=== PATIENT | female | born 1970 | race Caucasian/White ===

== ENCOUNTER 2020-10-18 18:09 | Inpatient (IN) | payer OTHER ==
[2020-10-18 19:51] LABS: BASOPHIL 0.1 % (0-2); EOSINOPHIL 0 % (0-5); HCT 53.3 % (37.0-47.0); HGB 17.7 g/dl (12.5-16.0); LYMPHOCYTE 15.9 % (15-48); MCH 30.3 pg (25.0-31.0); MCHC 33.2 g/dL (32.0-36.0); MCV 91.1 fL (78.0-100.0); MONOCYTE 2.1 % (0-12); NEUTROPHIL 81.5 % (41-80); NRBC 0; PLT 346 K/uL (150-400); RBC 5.85 M/uL (4.20-5.40); RDW 12.2 % (11.5-14.0); WBC 13.4 K/uL (4.0-10.5)
[2020-10-18 20:14] LABS: ALBUMIN 4.2 g/dL (3.4-5.0); BILIRUBIN - TOTAL 0.8 mg/dL (0.2-1.0); BUN/CREAT RATIO (CALC) 30.6 RATIO; C-REACTIVE PROTEIN 3.3 mg/dL (<=0.90); CREATININE 0.62 mg/dL (0.51-0.95); GLOBULIN (CALCULATION) 4.2 g/dL; MAGNESIUM 2.2 mg/dL (1.8-2.4); POTASSIUM 4.7 mmol/L (3.5-5.1); TOTAL PROTEIN 8.4 g/dL (6.4-8.2)
[2020-10-18 20:48] LABS: BILIRUBIN 1+ mg/dL (NEGATIVE); BLOOD TRACE-INTACT Ery/uL (NEGATIVE); CLARITY CLEAR (CLEAR); COLOR YELLOW (YELLOW); GLUCOSE (U) 2+ mg/dL (NORMAL); LEUKOCYTES NEGATIVE Leu/uL (NEGATIVE); NITRITE NEGATIVE (NEGATIVE); PROTEIN 1+ mg/dL (NEGATIVE); SPECIFIC GRAVITY >=1.030 (1.001-1.030); UROBILINOGEN 0.2 mg/dL (0.2-1.0); pH 5.5 (5.0-9.0)
[2020-10-18 20:55] LABS: AMORPHOUS URATES CRYSTALS TRACE; BACTERIA TRACE; MUCOUS TRACE
[2020-10-18] MEDS ORDERED: COLESTID 1GM TAB1 GM PO (23:03)
[2020-10-18] MEDS ORDERED: TRULICITY1.5 MG/0.5 SC (23:03)
[2020-10-18] MEDS ORDERED: ALL DAY ALL1 MG/1 ML PO (23:04)
[2020-10-18] MEDS ORDERED: MOBIC7.5 MG PO (23:05)
[2020-10-18] MEDS ORDERED: OMEPRAZOLE40 MG PO (23:05)
[2020-10-18] MEDS ORDERED: SYNJARDY XR 101 EACH PO (23:06)
[2020-10-18 23:53] LABS: CREATININE 0.53 mg/dL (0.51-0.95); POTASSIUM 4.9 mmol/L (3.5-5.1)
[2020-10-19 07:30] LABS: BASOPHIL 0.2 % (0-2); EOSINOPHIL 0.2 % (0-5); HCT 44.3 % (37.0-47.0); HGB 14.6 g/dl (12.5-16.0); LYMPHOCYTE 27.3 % (15-48); MCH 30.2 pg (25.0-31.0); MCV 91.5 fL (78.0-100.0); MONOCYTE 7.2 % (0-12); MPV 9.6 fL (6.0-9.5); NEUTROPHIL 64.8 % (41-80); NRBC 0; PLT 269 K/uL (150-400); RBC 4.84 M/uL (4.20-5.40); RDW 12.6 % (11.5-14.0); WBC 10.4 K/uL (4.0-10.5)
[2020-10-19 07:50] LABS: ALBUMIN 3.3 g/dL (3.4-5.0); BILIRUBIN - TOTAL 0.5 mg/dL (0.2-1.0); CREATININE 0.5 mg/dL (0.51-0.95); GLOBULIN (CALCULATION) 3.2 g/dL; POTASSIUM 3.9 mmol/L (3.5-5.1); TOTAL PROTEIN 6.5 g/dL (6.4-8.2)
[2020-10-19 13:17] LABS: CREATININE 0.5 mg/dL (0.51-0.95); POTASSIUM 3.7 mmol/L (3.5-5.1)
[2020-10-19 17:42] LABS: BUN/CREAT RATIO (CALC) 12.7 RATIO; CREATININE 0.55 mg/dL (0.51-0.95); POTASSIUM 3.4 mmol/L (3.5-5.1)
[2020-10-20 05:14] LABS: CREATININE 0.46 mg/dL (0.51-0.95); POTASSIUM 3.6 mmol/L (3.5-5.1)
[2020-10-20] MEDS ORDERED: METFORMIN HCL500 MG PO (10:09)
[2020-10-20] MEDS ORDERED: SUDAFED30 MG PO (10:09)
[2020-10-20] MEDS ORDERED: MUCINEX 600MG600 MG PO (10:09)
[2020-10-20] MEDS ORDERED: AMOX TR-K CLV1 EAC4 PO (10:09)
[2020-10-20] MEDS ORDERED: NOVOLIN 70100 UNIT/2 SC (10:09)
[2020-10-20] MEDS ORDERED: RELION NOV100 UNIT/2 SC (10:09)
== END 2020-10-20 11:50 | disposition home or self-care (01) | DRG 639 ==
LOC: FER 18:09 → FICU 21:45
PROVIDERS: Emergency Medicine; Hospitalist; Internal Medicine; ADMIT Internal Medicine
DX: E09.10 Drug or chemical induced diabetes mellitus with ketoacidosis without coma (principal); E66.01 Morbid (severe) obesity due to excess calories; T50.995A Adverse effect of other drugs, medicaments and biological substances, initial encounter; J01.90 Acute sinusitis, unspecified; K21.9 Gastro-esophageal reflux disease without esophagitis; Z90.49 Acquired absence of other specified parts of digestive tract; Z98.890 Other specified postprocedural states
CPT/HCPCS: 36415; 36600; 80048; 80053; 81001; 82009; 82728; 82803; 82962; 83036; 83615; 83690; 83735; 84145; 84484; 84681; 85025; 86140; 93005; J1650; J2405; J2550; J7030; U0002

== ENCOUNTER 2021-06-03 05:21 | Emergency (ER) | payer OTHER ==
[~2021-06-03 05:21] MED LIST: ALL DAY ALL1 MG/1 ML PO; AMOX TR-K CLV1 EAC4 PO; COLESTID 1GM TAB1 GM PO; METFORMIN HCL500 MG PO; MOBIC7.5 MG PO; MUCINEX 600MG600 MG PO; NOVOLIN 70100 UNIT/2 SC; OMEPRAZOLE40 MG PO; RELION NOV100 UNIT/2 SC; SUDAFED30 MG PO; SYNJARDY XR 101 EACH PO; TRULICITY1.5 MG/0.5 SC
[2021-06-03 06:18] LABS: BASOPHIL 0.5 % (0-2); EOSINOPHIL 0.1 % (0-5); HCT 48.9 % (37.0-47.0); HGB 16.5 g/dl (12.5-16.0); MCH 29.2 pg (25.0-31.0); MCHC 33.7 g/dL (32.0-36.0); MCV 86.4 fL (78.0-100.0); MONOCYTE 3.4 % (0-12); MPV 10.5 fL (6.0-9.5); NEUTROPHIL 82.5 % (41-80); NRBC 0; PLT 256 K/uL (150-400); RBC 5.66 M/uL (4.20-5.40); RDW 12.9 % (11.5-14.0); WBC 9.5 K/uL (4.0-10.5)
[2021-06-03 06:25] LABS: LYMPHOCYTE 11.4 % (15-48)
[2021-06-03 06:36] LABS: PRO-BNP 72 pg/mL (<125)
[2021-06-03 06:43] LABS: ALBUMIN 2.9 g/dL (3.4-5.0); BILIRUBIN - TOTAL 0.6 mg/dL (0.2-1.0); BUN/CREAT RATIO (CALC) 29.2 RATIO; C-REACTIVE PROTEIN 15.1 mg/dL (<=0.90); CREATININE 0.65 mg/dL (0.51-0.95); GLOBULIN (CALCULATION) 5.1 g/dL; MAGNESIUM 2.2 mg/dL (1.8-2.4); POTASSIUM 4.3 mmol/L (3.5-5.1)
[2021-06-03 06:55] LABS: LACTIC ACID 3.1 mmol/L (0.4-1.9)
[2021-06-03 10:45] LABS: ALBUMIN 2.3 g/dL (3.4-5.0); BILIRUBIN - TOTAL 0.4 mg/dL (0.2-1.0); CREATININE 0.4 mg/dL (0.51-0.95); GLOBULIN (CALCULATION) 4.4 g/dL; POTASSIUM 3.3 mmol/L (3.5-5.1); TOTAL PROTEIN 6.7 g/dL (6.4-8.2)
[2021-06-03 12:02] LABS: INR 1.08 (0.9-1.2); PROTHROMBIN TIME 13.4 SECONDS (11.8-13.4); PTT 28.7 SECONDS (24.4-34.7)
[2021-06-03 12:49] LABS: BILIRUBIN 1+ mg/dL (NEGATIVE); BLOOD 2+ Ery/uL (NEGATIVE); CLARITY CLEAR (CLEAR); COLOR YELLOW (YELLOW); GLUCOSE (U) 2+ mg/dL (NORMAL); LEUKOCYTES NEGATIVE Leu/uL (NEGATIVE); NITRITE NEGATIVE (NEGATIVE); PROTEIN 1+ mg/dL (NEGATIVE); SPECIFIC GRAVITY 1.025 (1.001-1.030); UROBILINOGEN 0.2 mg/dL (0.2-1.0); pH 5.5 (5.0-9.0)
[2021-06-03 12:58] LABS: URINARY WBC RARE
[2021-06-03 12:59] LABS: URINARY RBC RARE; YEAST PRESENT
[2021-06-03 15:24] LABS: BUN/CREAT RATIO (CALC) 30.2 RATIO; CREATININE 0.43 mg/dL (0.51-0.95); POTASSIUM 3.5 mmol/L (3.5-5.1)
[2021-06-03 18:43] LABS: BUN/CREAT RATIO (CALC) 26.8 RATIO; CREATININE 0.41 mg/dL (0.51-0.95); POTASSIUM 3.6 mmol/L (3.5-5.1)
== END 2021-06-03 19:00 | disposition other institution (70) ==
LOC: FER 05:21
PROVIDERS: Emergency Medicine Emergency Medical Services; Internal Medicine
DX: U07.1 COVID-19 (principal); J12.82 Pneumonia due to coronavirus disease 2019; R00.0 Tachycardia, unspecified; E11.9 Type 2 diabetes mellitus without complications; I10 Essential (primary) hypertension; Z98.890 Other specified postprocedural states; Z90.49 Acquired absence of other specified parts of digestive tract; Z79.84 Long term (current) use of oral hypoglycemic drugs; Z79.899 Other long term (current) drug therapy
CPT/HCPCS: 36415; 36600; 71045; 71275; 80048; 80053; 81001; 82009; 82803; 83605; 83690; 83735; 83880; 84484; 85025; 85379; 85610; 85730; 86140; 87040; 93005; 96365; 96366; 96367; 96375; 96376; C1751; C9113; C9399; J1100; J2405; J2543; J7030; J7050; U0002